=== PATIENT | female | born 1960 | race African-American/Black ===

== ENCOUNTER → 2016-08-28 | Outpatient (CLI) | payer BC ==
[~2016-08-28] VITALS: Ht 167.6 cm; Wt 103.4 kg
[~2016-08-28] MED LIST: BIOTIN10000 MC1 PO; OMEGA 3-6-9 11200 MG PO; PRAVACHOL40 MG PO; VITAMIN E400 UNIT PO
== END | disposition home or self-care (01) ==
LOC: AMB 08:55
PROC: 0DJD8ZZ Inspection of Lower Intestinal Tract, Via Natural or Artificial Opening Endoscopic (ICD-10-PCS; principal; 2016-08-28)
DX: Z09 Encounter for follow-up examination after completed treatment for conditions other than malignant neoplasm (principal); Z86.010 Personal history of colon polyps; Z87.891 Personal history of nicotine dependence; Z87.442 Personal history of urinary calculi; M19.90 Unspecified osteoarthritis, unspecified site
CPT/HCPCS: J2250; J3010